=== PATIENT | female | born 1955 | race Caucasian/White ===

== ENCOUNTER 2016-12-19 20:10 | Emergency (ER) | payer OTHER ==
[~2016-12-19] VITALS: Ht 172.7 cm; Wt 61.8 kg
[~2016-12-19 20:10] MED LIST: ALPR1 PO; ATOR40TA49 PO; BUPR300T OR; GLUCTAB PO; LEVO25TA36 PO; LISI-363 PO; NEUR300C OR; PROT40TA PO; SM F10002 PO; ST J81CH PO; TAB-TAB PO; ZYRT10TA12 PO
[2016-12-19 20:26] VITALS: BP 161/68; PULSE 72; RESP 22; TEMP 97.9; O2SAT 100
[2016-12-19] MEDS ORDERED: METF1000 PO (21:06)
[2016-12-19 21:11] VITALS: BP 139/75; PULSE 73; RESP 20; O2SAT 99
[2016-12-19] MEDS ORDERED: LYRI50CA PO (21:13)
[2016-12-19] MEDS ORDERED: BUPR150CR PO (21:13)
[2016-12-19] MEDS ORDERED: XANA1TAB PO (21:13)
[2016-12-19] MEDS ORDERED: ATOR40TA16 PO (21:13)
[2016-12-19] MEDS ORDERED: LEVO50TA4 PO (21:13)
[2016-12-19] MEDS ORDERED: CETI10CA3 (21:13)
[2016-12-19] MEDS ORDERED: LISI10TA3 PO (21:13)
[2016-12-19] MEDS ORDERED: LORazepam 2 MG/ML VIAL IV PUSH ONE (21:30)
[2016-12-19] MEDS ORDERED: ONDANSETRON HCL 4 MG/2 ML VIAL IV ONE (21:30)
[2016-12-19] MEDS ORDERED: SODIUM CHLOR 0.9% 1000 ML INJ 1,000 ML IV SCH (21:39)
--- NOTE | 2016-12-19 21:39 | PD ---
HPI Chief Complaint: GI Complaint Time Seen by Provider: 21:20 Travel History International Travel<30 days: No Contact w/Intl Traveler<30days: No Traveled to known affect area: No History of Present Illness HPI The patient is a 61-year-old female who has multiple complaints. She feels weak , dizzy-nonvertiginous, nausea, vomiting, diarrhea, shortness of breath, upper abdominal pain, belching for approximately one week. The patient does have a history of anxiety and depression. She saw her primary care physician a few hours ago but decided she wanted to be seen in the emergency room. She came in primarily for the nausea and she wants nausea medications immediately. She denies any focal neurologic change other than some transient numbness in the right arm. She denies any fever. The pharmacy closed before the patient could fill the medications for nausea that Dr. Kenney wrote. She denies any chest pain. She states she has a history of fibromyalgia and has been on gabapentin for many years and was taken off of it temporarily last but this was resumed. [facility] [place] Past Medical History Anxiety: Yes Depression: Yes Heart Rhythm Problems: No Cancer: No Cardiac Catheterization: No Cardiovascular Problems: Yes (7 day Holter monitor completed 11/09/2011) High Cholesterol: Yes Chest Pain: Yes (CHRONIC) Congestive Heart Failure: No Diabetes: Yes Patient Takes Glucophage: Yes (12/19/16) Diminished Hearing: No Endocrine: Yes Gastrointestinal Disorders: Yes (IBS) GERD: Yes Genitourinary: No Hypertension: Yes Musculoskeletal: Yes Neurologic: Yes (SINUS H/A) Psychiatric: Yes Respiratory: No Immunizations Current: No Thyroid Disease: Yes Tetanus Vaccination: Unknown Influenza Vaccination: No ?: Not Past Surgical History Coronary Artery Bypass Graft: No Eye Surgery: Yes (2007--BILATERAL EYELID) Hysterectomy: Yes () Oral Surgery: Yes (2007--NOSE,CARTILAGE) Other Surgery: Yes (EYELIDS, NOSE X2, HYSTERECTOMY) Family History Family Myocardial Infarction: Yes Social History Alcohol Use: No Tobacco Use: No Substance Use: No Allergies-Medications (Allergen,Severity, Reaction): Coded Allergies: No Known Allergies (Verified , 12/19/16) Reported Meds & Prescriptions Reported Meds & Active Scripts Active Reported Zyrtec (Cetirizine HCl) 10 Mg Capsule Lisinopril 10 Mg Tab 10 Mg PO DAILY Xanax Xr 24 HR (Alprazolam) 1 Mg Tab 1 Mg PO HS Take tablet intact, preferably in the morning. Atorvastatin (Atorvastatin Calcium) 40 Mg Tab 40 Mg PO HS Wellbutrin SR 12 HR (Bupropion HCl) 150 Mg Tab 150 Mg PO Q12HR Lyrica (Pregabalin) 50 Mg Cap 50 Mg PO DAILY Levothyroxine (Levothyroxine Sodium) 50 Mcg Tab 50 Mcg PO DAILY Metformin (Metformin HCl) 1,000 Mg Tab 1,000 Mg PO EVERY OTHER DAY With a meal Review of Systems Except as stated in HPI: all other systems reviewed are Neg Physical Exam Narrative GENERAL: The patient is alert, anxious, oriented times 3, minimally dehydrated appearing in moderate apparent distress with her nausea. The vital signs show respiratory rate of 22 and blood pressure 161/68 but otherwise normal. Oximetry is 100%. SKIN: Focused skin assessment warm/dry. HEAD: Atraumatic. Normocephalic. EYES: Pupils equal and round. No scleral icterus. No injection or drainage. ENT: No nasal bleeding or discharge. Mucous membranes pink and moist. NECK: Trachea midline. No JVD. CARDIOVASCULAR: Regular rate and rhythm. No murmur appreciated. RESPIRATORY: No accessory muscle use. Clear to auscultation. Breath sounds equal bilaterally. GASTROINTESTINAL: Abdomen soft, with tenderness to direct palpation in the midline epigastrium, nondistended. Hepatic and splenic margins not palpable. No guarding or rebound is present. MUSCULOSKELETAL: No obvious deformities. No clubbing. No cyanosis. No edema. NEUROLOGICAL: Awake and alert. No obvious cranial nerve deficits. Motor grossly within normal limits. Normal speech. PSYCHIATRIC: The patient appears anxious; insight and judgment normal. Data Data Last Documented VS Vital Signs Date Time Temp Pulse Resp B/P (MAP) Pulse Ox O2 Delivery O2 Flow Rate FiO2 12/19/16 22:10 69 20 147/69 (95) 97 12/19/16 20:26 97.9 Orders Orders Ondansetron Inj (Zofran Inj) (12/19/16 21:30) Lorazepam Inj (Ativan Inj) (12/19/16 21:30) Electrocardiogram (12/19/16 20:50) Complete Blood Count With Diff (12/19/16 21:39) Comprehensive Metabolic Panel (12/19/16 21:39) Lipase (12/19/16 21:39) Urinalysis - C+S If Indicated (12/19/16 21:39) Iv Access Insert/Monitor (12/19/16 21:39) Ecg Monitoring (12/19/16 21:39) Oximetry (12/19/16 21:39) Sodium Chlor 0.9% 1000 Ml Inj (Ns 1000 M (12/19/16 21:39) Sodium Chloride 0.9% Flush (Ns Flush) (12/19/16 21:45) Labs Laboratory Tests Test 12/19/16 21:50 12/19/16 22:00 White Blood Count 8.1 TH/MM3 Red Blood Count 4.41 MIL/MM3 Hemoglobin 12.5 GM/DL Hematocrit 37.4 % Mean Corpuscular Volume 84.9 FL Mean Corpuscular Hemoglobin 28.4 PG Mean Corpuscular Hemoglobin Concent 33.4 % Red Cell Distribution Width 12.7 % Platelet Count 274 TH/MM3 Mean Platelet Volume 7.8 FL Neutrophils (%) (Auto) 60.5 % Lymphocytes (%) (Auto) 29.7 % Monocytes (%) (Auto) 8.1 % Eosinophils (%) (Auto) 1.4 % Basophils (%) (Auto) 0.3 % Neutrophils # (Auto) 4.9 TH/MM3 Lymphocytes # (Auto) 2.4 TH/MM3 Monocytes # (Auto) 0.7 TH/MM3 Eosinophils # (Auto) 0.1 TH/MM3 Basophils # (Auto) 0.0 TH/MM3 CBC Comment DIFF FINAL Differential Comment Blood Urea Nitrogen 9 MG/DL Creatinine 1.30 MG/DL Random Glucose 115 MG/DL Total Protein 6.9 GM/DL Albumin 3.9 GM/DL Calcium Level 9.4 MG/DL Alkaline Phosphatase 70 U/L Aspartate Amino Transf (AST/SGOT) 12 U/L Alanine Aminotransferase (ALT/SGPT) 23 U/L Total Bilirubin 0.9 MG/DL Sodium Level 129 MEQ/L Potassium Level 3.9 MEQ/L Chloride Level 95 MEQ/L Carbon Dioxide Level 22.1 MEQ/L Anion Gap 12 MEQ/L Estimat Glomerular Filtration Rate 42 ML/MIN Lipase 124 U/L Urine Color YELLOW Urine Turbidity CLEAR Urine pH 5.5 Urine Specific [place] 1.010 Urine Protein NEG mg/dL Urine Glucose (UA) NEG mg/dL Urine Ketones TRACE mg/dL Urine Occult Blood NEG Urine Nitrite NEG Urine Bilirubin NEG Urine Leukocyte Esterase NEG Urine RBC 0-3 /hpf Urine Squamous Epithelial Cells 0-5 /hpf Microscopic Urinalysis Comment CULT NOT INDICATED MDM Medical Decision Making Medical Screen Exam Complete: Yes Emergency Medical Condition: Yes Medical Record Reviewed: Yes Interpretation(s) Except for trace ketones, the urinalysis is normal. The CBC is normal. The complete metabolic profile shows a sodium of 129, GFR 42, creatinine 1.3 but is otherwise unremarkable. The lipase is normal. Differential Diagnosis Medication side effect, medication withdrawal side effect, gastroenteritis, allergic reaction, dehydration, electrolyte disorder, anxiety Narrative Course It is now 2243 and the patient feels much better and wants to go home. She says that the Ativan I gave her really helped and she has no more nausea. Plan: The patient will be given a prescription for Ativan and 8 mg Zofran. Diagnosis Primary Impression: Gastroenteritis Additional Impression: Anxiety Additional Instructions: As we discussed, follow-up with Dr. Kenney this week or early next week. Do not drink alcohol or drive on the Ativan. The 8 mg Zofran is to be taken only 3 times daily. Med/Other Pt SpecificInfo: Prescription(s) given Scripts Ondansetron (Zofran) 8 Mg Tab 8 MG PO TID for Nausea/Vomiting, #20 TAB 0 Refills Prov: Ángel Valdez MD 12/19/16 Lorazepam (Ativan) 0.5 Mg Tab 0.5 MG PO Q8H Y for ANXIETY AND/OR AGITATION, #10 TAB 0 Refills Prov: Ángel Valdez MD 12/19/16 Disposition: 01 DISCHARGE HOME Condition: Stable Ángel Valdez MD Dec 19, 2016 21:39
[2016-12-19] MEDS ORDERED: SODIUM CHLORIDE 0.9% FLUSH 10 ML FLUSH IV FLUSH PRN (21:45)
[2016-12-19 22:00] LABS: AUTOMATED NEUTROPHIL # 4.9 TH/MM3 (1.8-7.7); BASOPHIL % 0.3 % (0.0-2.0); EOSINOPHIL # 0.1 TH/MM3 (0-0.4); EOSINOPHIL % 1.4 % (0.0-4.0); HEMATOCRIT 37.4 % (35.0-46.0); HEMO FLAGS DIFF FINAL; LYMPH % 29.7 % (9.0-44.0); LYMPHOCYTE # 2.4 TH/MM3 (1.0-4.8); MEAN CELL VOLUME 84.9 FL (80.0-100.0); MEAN CORPUSCULAR HEMOGLOBIN 28.4 PG (27.0-34.0); MEAN CORPUSCULAR HGB CONC 33.4 % (32.0-36.0); MONO % 8.1 % (0.0-8.0); NEUT % 60.5 % (16.0-70.0); PLATELET COUNT 274 TH/MM3 (150-450); RED BLOOD COUNT 4.41 MIL/MM3 (4.00-5.30); RED CELL DISTRIBUTION WIDTH 12.7 % (11.6-17.2); WHITE BLOOD COUNT 8.1 TH/MM3 (4.0-11.0)
[2016-12-19 22:09] LABS: BLOOD, URINE NEG (NEG); GLUCOSE,URINE NEG (NEG); KETONE, URINE TRACE mg/dL (NEG); NITRITE,URINE NEG (NEG); PH, URINE 5.5 (5.0-8.5)
[2016-12-19 22:09] LABS: CHLORIDE 95 MEQ/L (98-107); POTASSIUM 3.9 MEQ/L (3.5-5.1); SODIUM (NA) 129 MEQ/L (136-145)
[2016-12-19 22:10] VITALS: BP 147/69; PULSE 69; RESP 20; O2SAT 97
[2016-12-19 22:13] LABS: ANION GAP 12 MEQ/L (5-15); BICARBONATE 22.1 MEQ/L (21.0-32.0); BLOOD UREA NITROGEN 9 MG/DL (7-18)
[2016-12-19 22:16] LABS: URINE COLOR YELLOW (YELLW/STRAW)
[2016-12-19 22:16] LABS: ALT (GPT) 23 U/L (10-53); AST (GOT) 12 U/L (15-37); GLOMERULAR FILTRATION RATE 42 ML/MIN (>89)
[2016-12-19 22:17] LABS: COMMENT (UR) CULT NOT INDICATED; CULTURE IF INDICATED CULT NOT INDICATED; RBC, URINE 0-3 /hpf (0-3); SQUAMOUS EPITHELIAL CELL URINE 0-5 /hpf (0-5)
[2016-12-19 22:18] LABS: TOTAL BILIRUBIN ADULT 0.9 MG/DL (0.2-1.0)
[2016-12-19 22:19] LABS: ALKALINE PHOSPHATASE 70 U/L (45-117)
[2016-12-19] MEDS ORDERED: ZOFR8TAB PO (22:44)
[2016-12-19] MEDS ORDERED: LORA-392 PO (22:44)
[2016-12-19 22:52] VITALS: BP 120/71
--- NOTE | 2016-12-20 20:09 | EKG ---
Date Performed: 12/19/2016 Time Performed: 20:50:02 PTAGE: 61 years EKG: Sinus rhythm NORMAL ECG PREVIOUS TRACING : 04/16/2015 23.44 Compared to prior tracing no significant change DOCTOR: Alvaro Greene Interpretating Date/Time 12/20/2016 20:08:40
== END 2016-12-19 22:55 | disposition home or self-care (01) ==
LOC: PHED 20:10
DX: K52.9 Noninfective gastroenteritis and colitis, unspecified (principal); F41.9 Anxiety disorder, unspecified; E11.9 Type 2 diabetes mellitus without complications; I10 Essential (primary) hypertension; M79.7 Fibromyalgia; Z79.84 Long term (current) use of oral hypoglycemic drugs; Z79.899 Other long term (current) drug therapy
CPT/HCPCS: 80053; 81001; 83690; 85025; 93005; 96374; 96375; 99284; J2060; J2405; J7030

== ENCOUNTER 2016-12-22 19:54 | Emergency (ER) | payer OTHER ==
[~2016-12-22] VITALS: Ht 172.7 cm; Wt 81.5 kg
[~2016-12-22 19:54] MED LIST changes: -ALPR1 PO; +ATOR40TA16 PO; -ATOR40TA49 PO; +BUPR150CR PO; -BUPR300T OR; +CETI10CA3; -GLUCTAB PO; -LEVO25TA36 PO; +LEVO50TA4 PO; -LISI-363 PO; +LISI10TA3 PO; +LORA-392 PO; +LYRI50CA PO; +METF1000 PO; -NEUR300C OR; -PROT40TA PO; -SM F10002 PO; -ST J81CH PO; -TAB-TAB PO; +XANA1TAB PO; +ZOFR8TAB PO; -ZYRT10TA12 PO
[2016-12-22] MEDS ORDERED: PANT40TA3 PO (20:11)
[2016-12-22 20:13] VITALS: BP 136/79; PULSE 73; RESP 14; TEMP 98.7; O2SAT 99
[2016-12-22] MEDS ORDERED: SODIUM CHLOR 0.9% 1000 ML INJ 1,000 ML IV SCH (20:23)
[2016-12-22 20:30] VITALS: RESP 14; O2SAT 97
[2016-12-22] MEDS ORDERED: SODIUM CHLORIDE 0.9% FLUSH 10 ML FLUSH IV FLUSH PRN (20:30)
[2016-12-22] MEDS ORDERED: LORazepam 2 MG/ML VIAL IV PUSH ONE (20:30)
[2016-12-22] MEDS ORDERED: ONDANSETRON HCL 4 MG/2 ML VIAL IVP ONE (20:30)
--- NOTE | 2016-12-22 20:40 | PD ---
HPI Chief Complaint: General Weakness Time Seen by Provider: 20:15 Travel History International Travel<30 days: No Contact w/Intl Traveler<30days: No Traveled to known affect area: No History of Present Illness HPI 61-year-old female here for evaluation of generalized malaise, nausea, diarrhea , abdominal pain. The patient was seen in the emergency department 3 days ago for the same. She was also seen by her primary care physician Dr. Dubon on that day for the same. She was treated in the emergency department with Ativan and Zofran and was feeling better, however her symptoms returned later the next day. Apparently the patient was started on Lyrica about 2 months ago for her fibromyalgia. She believes that this medication was making her not feel well, so she decided to stop taking it abruptly about a week ago. After stopping this medication her symptoms that she presents with today started. She is having some lower abdominal cramping which has been mild to moderate, constant, worse with palpation. She states that she no longer has diarrhea, and last vomited yesterday. History of hysterectomy. No other abdominal surgeries. No urinary symptoms. No fevers or chills. PFSH Past Medical History Anxiety: Yes Depression: Yes Heart Rhythm Problems: No Cancer: No Cardiac Catheterization: No Cardiovascular Problems: Yes (7 day Holter monitor completed 11/09/2011) High Cholesterol: Yes Chest Pain: Yes (CHRONIC) Congestive Heart Failure: No Diabetes: Yes Diminished Hearing: No Endocrine: Yes Gastrointestinal Disorders: Yes (IBS) GERD: Yes Genitourinary: No Hypertension: Yes Musculoskeletal: Yes Neurologic: Yes (SINUS H/A) Psychiatric: Yes Respiratory: No Immunizations Current: No Thyroid Disease: Yes Past Surgical History Coronary Artery Bypass Graft: No Eye Surgery: Yes (2007--BILATERAL EYELID) Hysterectomy: Yes () Oral Surgery: Yes (2007--NOSE,CARTILAGE) Other Surgery: Yes (EYELIDS, NOSE X2, HYSTERECTOMY) Social History Alcohol Use: No Tobacco Use: No Substance Use: No Allergies-Medications (Allergen,Severity, Reaction): Coded Allergies: No Known Allergies (Verified , 12/22/16) Reported Meds & Prescriptions Reported Meds & Active Scripts Active Zofran (Ondansetron HCl) 8 Mg Tab 8 Mg PO TID Ativan (Lorazepam) 0.5 Mg Tab 0.5 Mg PO Q8H PRN Reported Pantoprazole (Pantoprazole Sodium) 40 Mg Tab 40 Mg PO DAILY Zyrtec (Cetirizine HCl) 10 Mg Capsule Lisinopril 10 Mg Tab 10 Mg PO DAILY Xanax Xr 24 HR (Alprazolam) 1 Mg Tab 1 Mg PO HS Take tablet intact, preferably in the morning. Atorvastatin (Atorvastatin Calcium) 40 Mg Tab 40 Mg PO HS Wellbutrin SR 12 HR (Bupropion HCl) 150 Mg Tab 150 Mg PO Q12HR Lyrica (Pregabalin) 50 Mg Cap 50 Mg PO DAILY Levothyroxine (Levothyroxine Sodium) 50 Mcg Tab 50 Mcg PO DAILY Metformin (Metformin HCl) 1,000 Mg Tab 1,000 Mg PO EVERY OTHER DAY With a meal Review of Systems Except as stated in HPI: all other systems reviewed are Neg Physical Exam Narrative GENERAL: Well-developed, well-nourished, comfortable, no apparent distress. SKIN: Focused skin assessment warm/dry. No rashes. HEAD: Atraumatic. Normocephalic. EYES: Pupils equal and round. No scleral icterus. No injection or drainage. ENT: Mucous membranes pink and dry. NECK: Trachea midline. No JVD. CARDIOVASCULAR: Regular rate and rhythm. RESPIRATORY: No accessory muscle use. Clear to auscultation. Breath sounds equal bilaterally. GASTROINTESTINAL: Abdomen soft, nondistended. Mild bilateral lower abdominal/ suprapubic tenderness without peritoneal signs. Rest of abdomen is soft and nontender. Normal bowel sounds. No hernias. MUSCULOSKELETAL: No obvious deformities. No clubbing. No cyanosis. No edema. NEUROLOGICAL: Awake and alert. No obvious cranial nerve deficits. Motor grossly within normal limits. Normal speech. PSYCHIATRIC: Appropriate mood and affect; insight and judgment normal. Data Data Last Documented VS Vital Signs Date Time Temp Pulse Resp B/P (MAP) Pulse Ox O2 Delivery O2 Flow Rate FiO2 12/22/16 20:30 14 97 Room Air 12/22/16 20:17 73 12/22/16 20:13 98.7 136/79 (98) Orders Orders Complete Blood Count With Diff (12/22/16 20:23) Comprehensive Metabolic Panel (12/22/16 20:23) Lipase (12/22/16 20:23) Prothrombin Time / Inr (Pt) (12/22/16 20:23) Act Partial Throm Time (Ptt) (12/22/16:23) Urinalysis - C+S If Indicated (12/22/16 20:23) Ct Abd/Pel W Iv Contrast(Rout) (12/22/16:23) Iv Access Insert/Monitor (12/22/16 20:23) Ecg Monitoring (12/22/16:) Oximetry (12/22/16:23) Ondansetron Inj (Zofran Inj) (12/22/16 20:30) Sodium Chlor 0.9% 1000 Ml Inj (Ns 1000 M (12/22/16 20:23) Sodium Chloride 0.9% Flush (Ns Flush) (12/22/16 20:30) Electrocardiogram (12/22/16:) Lorazepam Inj (Ativan Inj) (12/22/16 20:30) Influenzae A/B Antigen (12/22/16:) Iohexol 350 Inj (Omnipaque 350 Inj) (12/22/16 22:23) Labs Laboratory Tests Test 12/22/16 20:00 12/22/16 20:40 Urine Color YELLOW Urine Turbidity CLEAR Urine pH 5.5 Urine Specific [place] 1.026 Urine Protein NEG mg/dL Urine Glucose (UA) NEG mg/dL Urine Ketones 15 mg/dL Urine Occult Blood NEG Urine Nitrite NEG Urine Bilirubin NEG Urine Leukocyte Esterase NEG Urine RBC 0-3 /hpf Urine WBC 0-2 /hpf Urine Squamous Epithelial Cells 0-5 /hpf Urine Hyaline Casts 25-49 /lpf Microscopic Urinalysis Comment CULT NOT INDICATED White Blood Count 6.7 TH/MM3 Red Blood Count 3.88 MIL/MM3 Hemoglobin 11.6 GM/DL Hematocrit 33.5 % Mean Corpuscular Volume 86.1 FL Mean Corpuscular Hemoglobin 29.8 PG Mean Corpuscular Hemoglobin Concent 34.6 % Red Cell Distribution Width 13.4 % Platelet Count 240 TH/MM3 Mean Platelet Volume 7.5 FL Neutrophils (%) (Auto) 70.8 % Lymphocytes (%) (Auto) 22.2 % Monocytes (%) (Auto) 5.8 % Eosinophils (%) (Auto) 0.7 % Basophils (%) (Auto) 0.5 % Neutrophils # (Auto) 4.8 TH/MM3 Lymphocytes # (Auto) 1.5 TH/MM3 Monocytes # (Auto) 0.4 TH/MM3 Eosinophils # (Auto) 0.0 TH/MM3 Basophils # (Auto) 0.0 TH/MM3 CBC Comment DIFF FINAL Differential Comment Prothrombin Time 10.9 SEC Prothromb Time International Ratio 1.0 RATIO Activated Partial Thromboplast Time 24.1 SEC Blood Urea Nitrogen 7 MG/DL Creatinine 1.30 MG/DL Random Glucose 128 MG/DL Total Protein 6.0 GM/DL Albumin 3.3 GM/DL Calcium Level 8.5 MG/DL Alkaline Phosphatase 63 U/L Aspartate Amino Transf (AST/SGOT) 11 U/L Alanine Aminotransferase (ALT/SGPT) 21 U/L Total Bilirubin 0.6 MG/DL Sodium Level 135 MEQ/L Potassium Level 3.6 MEQ/L Chloride Level 101 MEQ/L Carbon Dioxide Level 22.8 MEQ/L Anion Gap 11 MEQ/L Estimat Glomerular Filtration Rate 42 ML/MIN Lipase 122 U/L [facility] Medical Decision Making Medical Screen Exam Complete: Yes Emergency Medical Condition: Yes Medical Record Reviewed: Yes Differential Diagnosis Viral illness, gastroenteritis, diverticulitis, colitis, dehydration/metabolic abnormality, UTI, cystitis, medication withdrawal Narrative Course Initial vital signs show heart rate 73, blood pressure 136/79, pulse ox 99% on room air, oral temp of 98.7F. CBC: WBC 6.7, hemoglobin 11.6, hematocrit 33.5, platelets 240. CMP is remarkable for sodium 135, creatinine 1.3, GFR 42 which is around her baseline, random glucose 128, otherwise unremarkable. Lipase is 122. UA shows 15 ketones, 25-49 hyaline cast, not suggestive of UTI. CT abdomen pelvis: CONCLUSION: Surgical absence of uterus. 2.8 cm left renal cyst. Otherwise negative with no acute intra-abdominal or pelvic process and bowel distribution is normal The patient and the patient's daughter were made aware of all findings. At this point of believe she is stable for discharge home with outpatient follow- up with her primary care physician this week. She is requesting a refill of her Ativan and Zofran. She was informed on when to return to the emergency department. She verbalizes understanding and agreement with plan. Diagnosis Primary Impression: Generalized weakness Referrals: Primary Care Physician 3 days Additional Instructions: Follow-up with your primary care physician this week. Return to the emergency department for worsening symptoms or any other concerns. Scripts Ondansetron Odt (Zofran Odt) 4 Mg Tab 4 MG SL Q8HR Y for Nausea/Vomiting, #20 TAB 0 Refills Prov: Guido Maria MD 12/22/16 Lorazepam (Ativan) 1 Mg Tab 1 MG PO DAILY Y for ANXIETY AND/OR AGITATION, #7 TAB 0 Refills Prov: Guido Maria MD 12/22/16 Disposition: 01 DISCHARGE HOME Condition: Stable Guido Maria MD Dec 22, 2016 20:40
[2016-12-22 21:00] LABS: AUTOMATED NEUTROPHIL # 4.8 TH/MM3 (1.8-7.7); BASOPHIL % 0.5 % (0.0-2.0); EOSINOPHIL % 0.7 % (0.0-4.0); HEMATOCRIT 33.5 % (35.0-46.0); HEMO FLAGS DIFF FINAL; LYMPH % 22.2 % (9.0-44.0); LYMPHOCYTE # 1.5 TH/MM3 (1.0-4.8); MEAN CELL VOLUME 86.1 FL (80.0-100.0); MEAN CORPUSCULAR HEMOGLOBIN 29.8 PG (27.0-34.0); MEAN CORPUSCULAR HGB CONC 34.6 % (32.0-36.0); MONO % 5.8 % (0.0-8.0); NEUT % 70.8 % (16.0-70.0); PLATELET COUNT 240 TH/MM3 (150-450); RED BLOOD COUNT 3.88 MIL/MM3 (4.00-5.30); RED CELL DISTRIBUTION WIDTH 13.4 % (11.6-17.2); WHITE BLOOD COUNT 6.7 TH/MM3 (4.0-11.0)
[2016-12-22 21:00] LABS: BLOOD, URINE NEG (NEG); GLUCOSE,URINE NEG (NEG); KETONE, URINE 15 mg/dL (NEG); NITRITE,URINE NEG (NEG); PH, URINE 5.5 (5.0-8.5)
[2016-12-22 21:05] LABS: URINE COLOR YELLOW (YELLW/STRAW)
[2016-12-22 21:07] LABS: COMMENT (UR) CULT NOT INDICATED; CULTURE IF INDICATED CULT NOT INDICATED; RBC, URINE 0-3 /hpf (0-3); SQUAMOUS EPITHELIAL CELL URINE 0-5 /hpf (0-5); WBC, URINE 0-2 /hpf (0-5)
[2016-12-22 21:15] VITALS: BP 126/72; PULSE 66; O2SAT 98
[2016-12-22 21:16] LABS: CHLORIDE 101 MEQ/L (98-107); POTASSIUM 3.6 MEQ/L (3.5-5.1); SODIUM (NA) 135 MEQ/L (136-145)
[2016-12-22 21:21] LABS: APTT (PATIENT) 24.1 SEC (24.3-30.1); PROTHROMBIN TIME - PATIENT 10.9 SEC (9.8-11.6)
[2016-12-22 22:04] LABS: ALKALINE PHOSPHATASE 63 U/L (45-117); ALT (GPT) 21 U/L (10-53); ANION GAP 11 MEQ/L (5-15); AST (GOT) 11 U/L (15-37); BICARBONATE 22.8 MEQ/L (21.0-32.0); BLOOD UREA NITROGEN 7 MG/DL (7-18); GLOMERULAR FILTRATION RATE 42 ML/MIN (>89); TOTAL BILIRUBIN ADULT 0.6 MG/DL (0.2-1.0)
[2016-12-22 22:15] VITALS: BP 150/78; PULSE 72; O2SAT 99
[2016-12-22] MEDS ORDERED: IOHEXOL 350 MG/ML 10 ML VIAL (for RAD DIAG) IVCONTRAST ONE (22:23)
--- NOTE | 2016-12-22 22:44 | RADRPT ---
EXAM DATE/TIME: 12/22/2016 22:18 [facility] COMPARISON: No previous studies available for comparison. INDICATIONS : Nausea, diarrhea, abdominal pain. IV CONTRAST: 96 cc Omnipaque 350 (iohexol) IV ORAL CONTRAST: No oral contrast ingested. RADIATION DOSE: 11.23 CTDIvol (mGy) MEDICAL HISTORY : Diabetes mellitus type 2. Gastroesophageal reflux disease. Inflammatory bowel disease. SURGICAL HISTORY : Hysterectomy. ENCOUNTER: Initial ACUITY: 3 days PAIN SCALE: 7/10 LOCATION: lower quadrant TECHNIQUE: Volumetric scanning of the abdomen and pelvis was performed. Using automated exposure control and ad justment of the mA and/or kV according to patient size, radiation dose was kept as low as reasonably achievable to obtain optimal diagnostic quality images. DICOM format image data is available electro nically for review and comparison. FINDINGS: LOWER LUNGS: The visualized lower lungs are clear. LIVER: Homogeneous density without lesion. There is no dilation of the biliary tree. No calcified gallston es. Gallbladder seen as a luminal structure without wall thickening SPLEEN: Normal size without lesion. PANCREAS: Within normal limits. KIDNEYS: Normal in size and shape. There is no stone or hydronephrosis. There is a 2.8 cm cyst of the left ki dney midpole lateral cortex. ADRENAL GLANDS: Within normal limits. VASCULAR: There is no aortic aneurysm. BOWEL/MESENTERY: The stomach, small bowel, and colon demonstrate no acute abnormality. There is no free intraperitone al air or fluid. ABDOMINAL WALL: Within normal limits. RETROPERITONEUM: There is no lymphadenopathy. BLADDER: No wall thickening or mass. REPRODUCTIVE: Within normal limits. Surgical absence of the uterus INGUINAL: There is no lymphadenopathy or hernia. MUSCULOSKELETAL: Within normal limits for patient age. CONCLUSION: Surgical absence of uterus. 2.8 cm left renal cyst. Otherwise negative with no acute intra-abdominal or pelvic pr ocess and bowel distribution is normal Jorge Tavera MD on December 22, 2016 at 22:38 Board Certified Radiologist. This report was verified electronically.
[2016-12-22] MEDS ORDERED: LORA-474 PO (23:02)
[2016-12-22] MEDS ORDERED: ZOFR4TAB3 SL (23:02)
[2016-12-22 23:25] VITALS: BP 119/71; PULSE 85; O2SAT 97
--- NOTE | 2016-12-23 21:28 | EKG ---
Date Performed: 12/22/2016 Time Performed: 20:35:52 PTAGE: 61 years EKG: Sinus rhythm NORMAL ECG PREVIOUS TRACING : 12/19/2016 20.50 Compared to prior tracing no significant change DOCTOR: Omar Banks Interpretating Date/Time 12/23/2016 21:27:34
== END 2016-12-22 23:43 | disposition home or self-care (01) ==
LOC: PHED 19:54
DX: R53.1 Weakness (principal); N28.1 Cyst of kidney, acquired; M79.7 Fibromyalgia; R10.9 Unspecified abdominal pain
CPT/HCPCS: 74177; 80053; 81001; 83690; 85025; 85610; 85730; 87804; 93005; 96361; 96374; 96375; 99285; J2060; J2405; J7030; Q9967

== ENCOUNTER 2017-01-09 17:23 | Emergency (ER) | payer OTHER ==
[~2017-01-09] VITALS: Ht 172.7 cm; Wt 83.0 kg
[~2017-01-09 17:23] MED LIST changes: +LORA-474 PO; +PANT40TA3 PO; +ZOFR4TAB3 SL
[2017-01-09 17:40] VITALS: BP 167/75; PULSE 90; RESP 16; TEMP 98.6; O2SAT 97
[2017-01-09] MEDS ORDERED: PROM25TA10 PO (18:53)
[2017-01-09] MEDS ORDERED: COLY4000S PO (18:53)
[2017-01-09] MEDS ORDERED: DULC100C PO (18:53)
--- NOTE | 2017-01-09 18:53 | PD ---
HPI Chief Complaint: Allergic/Adverse Reaction Time Seen by Provider: 18:14 Travel History International Travel<30 days: No Contact w/Intl Traveler<30days: No Traveled to known affect area: No History of Present Illness HPI The patient is a 62-year-old female who presents to the emergency department for persistent nausea with constipation. The patient states she was evaluated twice in December for similar symptoms, had a workup including laboratory evaluation and a CT the abdomen and pelvis which were essentially unremarkable. The patient was discharged home on Zofran. The patient states she has been taken her Zofran, however, she believes that medication is causing her to be constipated. The patient states she has had a decreased appetite over the last week, however, has been constipated intermittently for the last several weeks. The patient tried 2 enemas earlier today without any alleviation of her symptoms. Occasionally she complains of hard stool and feels like she needs to strain. The patient does have a follow-up appointment tomorrow with a laboratory aide, however, is requesting something to help her have a bowel movement. She does complain of mild nausea but denies any vomiting. She denies any fever, chills, or sweats. The patient states the Zofran did not help her nausea earlier today, therefore, she took lorazepam 0.5 mg orally. Symptoms are mild to moderate, there are no current alleviating or exacerbating factors. PFSH Past Medical History Anxiety: Yes Depression: Yes Heart Rhythm Problems: No Cancer: No Cardiac Catheterization: No Cardiovascular Problems: Yes (7 day Holter monitor completed 11/09/2011) High Cholesterol: Yes Chest Pain: Yes (CHRONIC) Congestive Heart Failure: No Diabetes: Yes Patient Takes Glucophage: Yes Diminished Hearing: No Endocrine: Yes Gastrointestinal Disorders: Yes (IBS) GERD: Yes Genitourinary: No Hypertension: Yes Musculoskeletal: Yes Neurologic: Yes (SINUS H/A) Psychiatric: Yes Respiratory: No Immunizations Current: No Thyroid Disease: Yes Tetanus Vaccination: > 5 Years Influenza Vaccination: No ?: Not Past Surgical History Coronary Artery Bypass Graft: No Eye Surgery: Yes (2007--BILATERAL EYELID) Hysterectomy: Yes (1994-) Oral Surgery: Yes (2007--NOSE,CARTILAGE) Other Surgery: Yes (EYELIDS, NOSE X2, HYSTERECTOMY) Family History Family Myocardial Infarction: Yes Social History Alcohol Use: No Tobacco Use: No Substance Use: No Allergies-Medications (Allergen,Severity, Reaction): Coded Allergies: No Known Allergies (Verified Adverse Reaction, Unknown, 01/09/17) Reported Meds & Prescriptions Reported Meds & Active Scripts Active Reported Pantoprazole (Pantoprazole Sodium) 40 Mg Tab 40 Mg PO DAILY Zyrtec (Cetirizine HCl) 10 Mg Capsule Lisinopril 10 Mg Tab 10 Mg PO DAILY Xanax Xr 24 HR (Alprazolam) 1 Mg Tab 1 Mg PO HS Take tablet intact, preferably in the morning. Atorvastatin (Atorvastatin Calcium) 40 Mg Tab 40 Mg PO HS Wellbutrin SR 12 HR (Bupropion HCl) 150 Mg Tab 150 Mg PO Q12HR Lyrica (Pregabalin) 50 Mg Cap 50 Mg PO DAILY Levothyroxine (Levothyroxine Sodium) 50 Mcg Tab 50 Mcg PO DAILY Metformin (Metformin HCl) 1,000 Mg Tab 1,000 Mg PO EVERY OTHER DAY With a meal Review of Systems Except as stated in HPI: all other systems reviewed are Neg General / Constitutional: No: Fever Cardiovascular: No: Chest Pain or Discomfort Gastrointestinal: Positive: Nausea, Abdominal Pain, Constipation, Changes in Bowel Habits, No: Vomiting, Diarrhea Physical Exam Narrative GENERAL: Awake, alert, pleasant 62-year-old female who appears her stated age and is in no acute respiratory distress. SKIN: Focused skin assessment warm/dry. HEAD: Atraumatic. Normocephalic. EYES: No injection or drainage. ENT: No nasal bleeding or discharge. Mucous membranes pink and moist. NECK: Trachea midline. No JVD. GASTROINTESTINAL: Abdomen soft, non-tender, nondistended. No guarding or rigidity. Rectal: Exam was performed in the presence of a female nurse. Digital exam does reveal some moderately hard firm stool in the rectal vault, no gross blood. The stool was broken up via digital exam. MUSCULOSKELETAL: No obvious deformities. No clubbing. No cyanosis. No edema. NEUROLOGICAL: Awake and alert. No obvious cranial nerve deficits. Motor grossly within normal limits. Normal speech. PSYCHIATRIC: Appropriate mood and affect; insight and judgment normal. Data Data Last Documented VS Vital Signs Date Time Temp Pulse Resp B/P (MAP) Pulse Ox O2 Delivery O2 Flow Rate FiO2 01/09/17 18:13 Room Air 01/09/17 17:40 98.6 90 16 167/75 (105) 97 MDM Medical Decision Making Medical Screen Exam Complete: Yes Emergency Medical Condition: Yes Medical Record Reviewed: Yes Differential Diagnosis differential diagnosis includes fecal impaction, constipation, dehydration, medication side effect, IBS, IBD. Narrative Course Rectal exam was performed which did reveal some moderately hard stool the rectal vault, this was broken up via digital exam. The patient will be placed on Dulcolax and GoLYTELY. She has an appointment tomorrow to see gastroenterology. The patient was evaluated twice in December, had laboratory evaluation on the which was essentially unremarkable as well as a CT the abdomen and pelvis which was unremarkable. The patient is advised to follow-up with gastroenterology tomorrow as scheduled. I will change her nausea medicine from Zofran to Phenergan. She is advised to drink plenty fluids to stay hydrated and to add fiber to her diet. Diagnosis Primary Impression: Constipation Qualified Codes: K59.00 - Constipation, unspecified Patient Instructions: General Instructions Additional Instructions: Dulcolax and GoLYTELY as directed. Phenergan as needed. Plenty fluids to stay hydrated. Follow-up with gastroenterology tomorrow as scheduled. Please provide the patient a copy of her lab results and CT results from December 22, 2016 for her office visit tomorrow with her laboratory aide. Med/Other Pt SpecificInfo: Prescription(s) given Scripts Docusate Sodium (Dulcolax Stool Softener) 100 Mg Cap 100 MG PO BID for Prevent Constipation, #20 CAP 0 Refills Prov: Tre Mcgill MD 01/09/17 Promethazine (Phenergan) 25 Mg Tablet 25 MG PO Q6H Y for NAUSEA OR VOMITING, #12 TAB 0 Refills Prov: Tre Mcgill MD 01/09/17 Peg-Electrolytes (Golytely 236 gm) 4,000 Ml Soln 4000 ML PO ONCE for Bowel Cleanser, #1 CONTAINER 0 Refills Prov: Tre Mcgill MD 01/09/17 Disposition: 01 DISCHARGE HOME Condition: Stable Tre Mcgill MD Jan 09, 2017 18:53
[2017-01-09 19:20] VITALS: BP 129/64
== END 2017-01-09 19:25 | disposition home or self-care (01) ==
LOC: PHED 17:23
DX: K59.00 Constipation, unspecified (principal); I10 Essential (primary) hypertension; E78.00 Pure hypercholesterolemia, unspecified; E11.9 Type 2 diabetes mellitus without complications; K58.9 Irritable bowel syndrome, unspecified; K21.9 Gastro-esophageal reflux disease without esophagitis; Z79.84 Long term (current) use of oral hypoglycemic drugs; Z79.899 Other long term (current) drug therapy
CPT/HCPCS: 99284

== ENCOUNTER 2017-01-20 18:36 | Emergency (ER) | payer OTHER ==
[~2017-01-20] VITALS: Ht 170.2 cm; Wt 82.0 kg
[~2017-01-20 18:36] MED LIST changes: +COLY4000S PO; +DULC100C PO; -LORA-392 PO; -LORA-474 PO; +PROM25TA10 PO; -ZOFR4TAB3 SL; -ZOFR8TAB PO
[2017-01-20 19:00] VITALS: BP 143/78; PULSE 67; RESP 18; TEMP 98.4; O2SAT 97
[2017-01-20] MEDS ORDERED: SODIUM CHLOR 0.9% 1000 ML INJ 1,000 ML IV ONE (19:00)
[2017-01-20] MEDS ORDERED: ONDANSETRON HCL 4 MG/2 ML VIAL IVP ONE (19:00)
[2017-01-20] MEDS ORDERED: SODIUM CHLORIDE 0.9% FLUSH 10 ML FLUSH IV FLUSH PRN (19:00)
--- NOTE | 2017-01-20 19:00 | PD ---
HPI Chief Complaint: nausea Time Seen by Provider: 18:46 Travel History International Travel<30 days: No Contact w/Intl Traveler<30days: No Traveled to known affect area: No History of Present Illness HPI The patient was seen and examined in the presence of the nurse. This patient complains of nausea. She has some bloating and abdominal cramping intermittently. She has history of irritable bowel syndrome. Been here multiple times for the same. She's had normal labs and normal CT of abdomen and pelvis recently. No fever. No abdominal surgeries. Patient denies Accu- Chek this morning it was 84 and she felt she was hypoglycemic and drank some orange juice. She felt slightly better. Symptoms severity is moderate. Alleviating factors. No exacerbating factors. Duration 2 months PFSH Past Medical History Anxiety: Yes Depression: Yes Heart Rhythm Problems: No Cancer: No Cardiac Catheterization: No Cardiovascular Problems: Yes (7 day Holter monitor completed 11/09/2011) High Cholesterol: Yes Chest Pain: Yes (CHRONIC) Congestive Heart Failure: No Diabetes: Yes Diminished Hearing: No Endocrine: Yes Gastrointestinal Disorders: Yes (IBS) GERD: Yes Genitourinary: No Hypertension: Yes Musculoskeletal: Yes Neurologic: Yes (SINUS H/A) Psychiatric: Yes Respiratory: No Immunizations Current: No Thyroid Disease: Yes Past Surgical History Coronary Artery Bypass Graft: No Eye Surgery: Yes (2007--BILATERAL EYELID) Hysterectomy: Yes (1994-) Oral Surgery: Yes (2007--NOSE,CARTILAGE) Other Surgery: Yes (EYELIDS, NOSE X2, HYSTERECTOMY) Social History Alcohol Use: No Tobacco Use: No Substance Use: No Allergies-Medications (Allergen,Severity, Reaction): Coded Allergies: No Known Allergies (Verified Adverse Reaction, Unknown, 01/20/17) Reported Meds & Prescriptions Reported Meds & Active Scripts Active Zofran (Ondansetron HCl) 4 Mg Tab 4 Mg PO Q6HR PRN Dulcolax Stool Softener (Docusate Sodium) 100 Mg Cap 100 Mg PO BID Phenergan (Promethazine HCl) 25 Mg Tablet 25 Mg PO Q6H PRN Golytely 236 gm (Polyethylene Glycol/Electrolytes) 4,000 Ml Soln 4,000 Ml PO ONCE Reported Pantoprazole (Pantoprazole Sodium) 40 Mg Tab 40 Mg PO DAILY Zyrtec (Cetirizine HCl) 10 Mg Capsule Lisinopril 10 Mg Tab 10 Mg PO DAILY Xanax Xr 24 HR (Alprazolam) 1 Mg Tab 1 Mg PO HS Take tablet intact, preferably in the morning. Atorvastatin (Atorvastatin Calcium) 40 Mg Tab 40 Mg PO HS Wellbutrin SR 12 HR (Bupropion HCl) 150 Mg Tab 150 Mg PO Q12HR Lyrica (Pregabalin) 50 Mg Cap 50 Mg PO DAILY Levothyroxine (Levothyroxine Sodium) 50 Mcg Tab 50 Mcg PO DAILY Metformin (Metformin HCl) 1,000 Mg Tab 1,000 Mg PO EVERY OTHER DAY With a meal Review of Systems General / Constitutional: No: Fever Eyes: No: Visual changes HENT: No: Headaches Cardiovascular: No: Chest Pain or Discomfort Respiratory: No: Shortness of Breath Gastrointestinal: Positive: Nausea, Abdominal Pain Genitourinary: No: Dysuria Musculoskeletal: No: Pain Skin: No Rash Neurologic: No: Weakness Psychiatric: No: Depression Endocrine: No: Polydipsia Hematologic/Lymphatic: No: Easy Bruising Physical Exam Narrative GENERAL: Well-nourished, well-developed patient in no apparent distress. SKIN: Focused skin assessment reveals no rash and nodules. Skin is Warm and dry. HEAD: Atraumatic. Normocephalic. EYES: Pupils equal and round. No scleral icterus. No injection or drainage. ENT: No nasal bleeding or discharge. Mucous membranes pink and moist. NECK: Trachea midline. No JVD. CARDIOVASCULAR: Regular rate and rhythm. No murmur appreciated. RESPIRATORY: No accessory muscle use. Clear to auscultation. Breath sounds equal bilaterally. GASTROINTESTINAL: Abdomen soft, non-tender, nondistended. Hepatic and splenic margins not palpable. MUSCULOSKELETAL: No obvious deformities. No clubbing. No cyanosis. No edema. NEUROLOGICAL: Awake and alert. No obvious cranial nerve deficits. Motor grossly within normal limits. Normal speech. PSYCHIATRIC: Anxious mood and affect; insight and judgment normal. Data Data Last Documented VS Vital Signs Date Time Temp Pulse Resp B/P (MAP) Pulse Ox O2 Delivery O2 Flow Rate FiO2 01/20/17 19:00 67 18 97 Room Air 01/20/17 19:00 98.4 143/78 (99) Orders Orders Complete Blood Count With Diff (01/20/17 18:53) Comprehensive Metabolic Panel (01/20/17 18:53) Lipase (01/20/17 18:53) Iv Access Insert/Monitor (01/20/17 18:53) Ondansetron Inj (Zofran Inj) (01/20/17 19:00) Sodium Chloride 0.9% Flush (Ns Flush) (01/20/17 19:00) Sodium Chlor 0.9% 1000 Ml Inj (Ns 1000 M (01/20/17 19:00) Labs Laboratory Tests Test 01/20/17 19:30 White Blood Count 6.3 TH/MM3 Red Blood Count 4.27 MIL/MM3 Hemoglobin 12.1 GM/DL Hematocrit 36.4 % Mean Corpuscular Volume 85.2 FL Mean Corpuscular Hemoglobin 28.4 PG Mean Corpuscular Hemoglobin Concent 33.3 % Red Cell Distribution Width 12.3 % Platelet Count 314 TH/MM3 Mean Platelet Volume 7.4 FL Neutrophils (%) (Auto) 64.1 % Lymphocytes (%) (Auto) 26.9 % Monocytes (%) (Auto) 7.1 % Eosinophils (%) (Auto) 1.5 % Basophils (%) (Auto) 0.4 % Neutrophils # (Auto) 4.1 TH/MM3 Lymphocytes # (Auto) 1.7 TH/MM3 Monocytes # (Auto) 0.4 TH/MM3 Eosinophils # (Auto) 0.1 TH/MM3 Basophils # (Auto) 0.0 TH/MM3 CBC Comment DIFF FINAL Differential Comment Blood Urea Nitrogen 12 MG/DL Creatinine 0.92 MG/DL Random Glucose 112 MG/DL Total Protein 7.0 GM/DL Albumin 3.8 GM/DL Calcium Level 9.1 MG/DL Alkaline Phosphatase 74 U/L Aspartate Amino Transf (AST/SGOT) 13 U/L Alanine Aminotransferase (ALT/SGPT) 26 U/L Total Bilirubin 0.8 MG/DL Sodium Level 133 MEQ/L Potassium Level 3.6 MEQ/L Chloride Level 98 MEQ/L Carbon Dioxide Level 25.9 MEQ/L Anion Gap 9 MEQ/L Estimat Glomerular Filtration Rate 62 ML/MIN Lipase 138 U/L MDM Medical Decision Making Medical Screen Exam Complete: Yes Emergency Medical Condition: Yes Medical Record Reviewed: Yes Differential Diagnosis Irritable bowel syndrome, gastroparesis, colitis Narrative Course I have reviewed the patient's electronic medical record. Reviewed her last visit here which was January 07, 2017 IV placed CBC is normal metabolic profile is normal LFT's are normal lipase is normal I gave her IV Zofran and 1 L normal saline IV Recheck she feels improved Workup here is negative. Stable for outpatient follow-up Zofran prescribed Diagnosis Primary Impression: Nausea Additional Impressions: Abdominal pain Qualified Codes: R10.84 - Generalized abdominal pain Diabetes Qualified Codes: E11.9 - Type 2 diabetes mellitus without complications Additional Instructions: The patient was advised to follow up with their physician and return if they worsen. Med/Other Pt SpecificInfo: Prescription(s) given Scripts Ondansetron (Zofran) 4 Mg Tab 4 MG PO Q6HR Y for NAUSEA OR VOMITING, #15 TAB 0 Refills Prov: Case Jackson MD 01/20/17 Disposition: 01 DISCHARGE HOME Condition: Stable Case Jackson MD Jan 20, 2017 19:00
[2017-01-20 19:35] LABS: AUTOMATED NEUTROPHIL # 4.1 TH/MM3 (1.8-7.7); BASOPHIL % 0.4 % (0.0-2.0); EOSINOPHIL # 0.1 TH/MM3 (0-0.4); EOSINOPHIL % 1.5 % (0.0-4.0); HEMATOCRIT 36.4 % (35.0-46.0); HEMO FLAGS DIFF FINAL; LYMPH % 26.9 % (9.0-44.0); LYMPHOCYTE # 1.7 TH/MM3 (1.0-4.8); MEAN CELL VOLUME 85.2 FL (80.0-100.0); MEAN CORPUSCULAR HEMOGLOBIN 28.4 PG (27.0-34.0); MEAN CORPUSCULAR HGB CONC 33.3 % (32.0-36.0); MONO % 7.1 % (0.0-8.0); NEUT % 64.1 % (16.0-70.0); PLATELET COUNT 314 TH/MM3 (150-450); RED BLOOD COUNT 4.27 MIL/MM3 (4.00-5.30); RED CELL DISTRIBUTION WIDTH 12.3 % (11.6-17.2); WHITE BLOOD COUNT 6.3 TH/MM3 (4.0-11.0)
[2017-01-20 19:48] LABS: CHLORIDE 98 MEQ/L (98-107); POTASSIUM 3.6 MEQ/L (3.5-5.1); SODIUM (NA) 133 MEQ/L (136-145)
[2017-01-20 19:54] LABS: ANION GAP 9 MEQ/L (5-15); BICARBONATE 25.9 MEQ/L (21.0-32.0); BLOOD UREA NITROGEN 12 MG/DL (7-18)
[2017-01-20 19:56] LABS: ALT (GPT) 26 U/L (10-53)
[2017-01-20 19:57] LABS: AST (GOT) 13 U/L (15-37); GLOMERULAR FILTRATION RATE 62 ML/MIN (>89)
[2017-01-20 19:58] LABS: TOTAL BILIRUBIN ADULT 0.8 MG/DL (0.2-1.0)
[2017-01-20 20:00] LABS: ALKALINE PHOSPHATASE 74 U/L (45-117)
[2017-01-20] MEDS ORDERED: ZOFR4TAB PO (20:10)
[2017-01-20 20:42] VITALS: BP 144/68; PULSE 70; RESP 18; O2SAT 97
--- NOTE | 2017-01-21 09:23 | EKG ---
Date Performed: 01/20/2017 Time Performed: 18:41:50 PTAGE: 62 years EKG: Sinus rhythm Compared to prior tracing no significant change NORMAL ECG PREVIOUS TRACING : 12/22/2016 20.35 DOCTOR: Amando French Interpretating Date/Time 01/21/2017 09:21:48
== END 2017-01-20 20:57 | disposition home or self-care (01) ==
LOC: PHED 18:36
DX: R11.0 Nausea (principal); R10.9 Unspecified abdominal pain; E11.9 Type 2 diabetes mellitus without complications; Z79.84 Long term (current) use of oral hypoglycemic drugs
CPT/HCPCS: 80053; 83690; 85025; 93005; 96361; 96374; 99284; J2405; J7030

== ENCOUNTER 2017-06-20 08:22 | Observation (INO) | END 2017-06-21 09:59 | disposition home or self-care (01) | DX: J34.89 Other specified disorders of nose and nasal sinuses (principal); J32.1 Chronic frontal sinusitis; R09.81 Nasal congestion; J34.3 Hypertrophy of nasal turbinates; J34.2 Deviated nasal septum | CPT/HCPCS: 00160; 30140; 30520; 94762; 96361; 96365; 96366; G0378; J0295; J2250; J2270; J3010; J7120 ==